=== PATIENT | male | born 1990 | race Asian ===

== ENCOUNTER 2019-02-08 08:15 | Emergency (ER) | payer MEDICAID, OTHER ==
[~2019-02-08] VITALS: Ht 172.7 cm; Wt 95.5 kg
[2019-02-08] MEDS ORDERED: LISI-660 PO (08:27)
[2019-02-08] MEDS ORDERED: AMLO2.5T4 PO (08:27)
[2019-02-08] MEDS ORDERED: METHOCARBAMOL 500 MG TABLET PO ONE (09:30)
[2019-02-08] MEDS ORDERED: KETOROLAC TROMETHAMINE 60 MG/2 ML VIAL IM ONE (09:30)
[2019-02-08 10:01] VITALS: BP 135/89
== END 2019-02-08 10:10 | disposition home or self-care (01) ==
LOC: EMS 08:18
DX: S16.1XXA Strain of muscle, fascia and tendon at neck level, initial encounter (principal); S40.021A Contusion of right upper arm, initial encounter; I10 Essential (primary) hypertension; Z79.899 Other long term (current) drug therapy; X50.0XXA Overexertion from strenuous movement or load, initial encounter; Y93.89 Activity, other specified; Y92.89 Other specified places as the place of occurrence of the external cause; Y99.8 Other external cause status
CPT/HCPCS: 96372; 99283; J1885

== ENCOUNTER 2019-09-22 14:08 | Emergency (ER) | payer MEDICAID ==
[~2019-09-22] VITALS: Ht 175.3 cm; Wt 81.8 kg
[~2019-09-22 14:08] MED LIST: AMLO2.5T4 PO; LISI-660 PO
[2019-09-22] MEDS ORDERED: ATOR20TA86 PO (14:25)
[2019-09-22] MEDS ORDERED: IBUPROFEN 400 MG TABLET PO ONE (16:45)
[2019-09-22 17:04] VITALS: BP 129/84
== END 2019-09-22 17:06 | disposition home or self-care (01) ==
LOC: EMS 14:09
DX: S96.812A Strain of other specified muscles and tendons at ankle and foot level, left foot, initial encounter (principal); E78.00 Pure hypercholesterolemia, unspecified; I10 Essential (primary) hypertension; Z79.899 Other long term (current) drug therapy; Z98.890 Other specified postprocedural states; X50.1XXA Overexertion from prolonged static or awkward postures, initial encounter; Y93.89 Activity, other specified; Y92.89 Other specified places as the place of occurrence of the external cause; Y99.8 Other external cause status

== ENCOUNTER 2022-12-13 19:02 | Emergency (ER) | payer MEDICAID ==
[~2022-12-13] VITALS: Ht 175.3 cm; Wt 100.0 kg
[~2022-12-13 19:02] MED LIST changes: -AMLO2.5T4 PO; +AMLO2.5T96 PO; +ATOR20TA86 PO; -LISI-660 PO
[2022-12-13 19:11] LABS: COVID AG,FIA SOURCE NASAL SWAB
[2022-12-13 19:30] LABS: INFLUENZA TYPE A NEGATIVE FOR TYPE A (NEGATIVE); INFLUENZA TYPE B NEGATIVE FOR TYPE B (NEGATIVE)
[2022-12-14] MEDS ORDERED: AMOX250C4 PO (00:33)
[2022-12-14] MEDS ORDERED: IPRA3S NASAL (00:34)
[2022-12-14] MEDS ORDERED: BENZ-227 PO (00:34)
[2022-12-14 01:15] VITALS: BP 135/78
== END 2022-12-14 01:47 | disposition home or self-care (01) ==
LOC: EMS 19:03
DX: J32.9 Chronic sinusitis, unspecified (principal); E78.00 Pure hypercholesterolemia, unspecified; I10 Essential (primary) hypertension; Z20.822 Contact with and (suspected) exposure to COVID-19
CPT/HCPCS: 71045; 87804; 99284